=== PATIENT | female | born 1960 | race Caucasian/White ===

== ENCOUNTER 2017-11-17 18:41 | Emergency (ER) | payer OTHER ==
[~2017-11-17] VITALS: Ht 162.6 cm; Wt 78.2 kg
[~2017-11-17 18:41] MED LIST: ALPR0.5T99 PO; OMEP20TA PO; SERT100 PO; SYNT137T PO; TRAZ150T75 PO; TRAZ50TA78 PO
[2017-11-17 18:46] VITALS: BP 173/77; PULSE 97; RESP 16; TEMP 99.3; O2SAT 97
[2017-11-17] MEDS ORDERED: TRAZ1TAB14 PO (19:08)
[2017-11-17] MEDS ORDERED: BUPR150XL PO (19:08)
[2017-11-17] MEDS ORDERED: LEVO.125 PO (19:08)
[2017-11-17] MEDS ORDERED: CLON1 PO (19:09)
[2017-11-17] MEDS ORDERED: ALLE60TA PO (19:10)
[2017-11-17 19:39] VITALS: BP 146/66; PULSE 91; RESP 18; O2SAT 97
--- NOTE | 2017-11-17 19:39 | PD ---
HPI Chief Complaint: Anxiety Time Seen by Provider: 19:10 Travel History International Travel<30 days: No Contact w/Intl Traveler<30days: No Traveled to known affect area: No History of Present Illness HPI 57 year old female presents to the ER for evaluation of "anxiety". She states it started two days ago while gardening she noted dizziness. She also reports intermittent forgetfulness and forgetting intermittent tasks. No focalized weakness Endorses intermittent double vision. Increased nervousness. At that patient states she has noticed that she is having some trouble ambulating as well. Denies any chest pain shortness breath abdominal pain nausea vomiting diarrhea constipation. States is never happened to her before. She states symptoms are moderate, duration for the past 2 days, constant, associated signs and symptoms as above. PFSH Past Medical History Anemia: Yes Arthritis: Yes (LEFT HIP) Asthma: Yes Anxiety: Yes Depression: Yes Cancer: Yes (SKIN: BASAL CELL) Diminished Hearing: No Endocrine: Yes Gastrointestinal Disorders: Yes (GERD) Genitourinary: Yes (LITHOTRIPSY) Hepatitis: No Hiatal Hernia: Yes Immune Disorder: No Inguinal Hernia: Yes (LEFT SIDE NOT REPAIRED) Kidney Stones: Yes Musculoskeletal: Yes (ARTHRITIS) Neurologic: No Psychiatric: Yes (Hx of treatment for anxiety and depression) Reproductive: No Respiratory: Yes (ASTHMA) Migraines: Yes Thyroid Disease: Yes Tetanus Vaccination: < 5 Years Influenza Vaccination: Yes ?: Not Menopausal: Yes : 3 Para: 3 Ovarian Cysts: Yes (LEFT SIDE) Past Surgical History Abdominal Surgery: No AICD: No Cardiac Surgery: No Ear Surgery: No Endocrine Surgery: Yes (REPORTS GLAND REMOVED FROM NECK IN CHILDHOOD) Eye Surgery: Yes (RIGHT CATARACT SURGERY 2013, ) Genitourinary Surgery: Yes (CYSTOSCOPY, LEFT URETERAL STENT PLACEMENT/ REM'D, ESWL) Gynecologic Surgery: No Joint Replacement: No Oral Surgery: Yes (TONSILS) Pacemaker: No Thoracic Surgery: No Tonsillectomy: Yes Other Surgery: Yes (CYST REMOVED FROM LEFT LATERIAL NECK AREA) Social History Alcohol Use: Yes (WINE RARELY) Tobacco Use: No (QUIT 1983) Substance Use: No Allergies-Medications (Allergen,Severity, Reaction): Coded Allergies: tramadol (Unverified Allergy, Severe, MENTAL CHANGES, 11/17/17) hydromorphone (Unverified Adverse Reaction, Severe, MENTAL CHANGES, 11/17/17 ) ondansetron (Unverified Adverse Reaction, Severe, MIGRANE HEEADACHE, ) Reported Meds & Prescriptions Reported Meds & Active Scripts Active Reported Shila Allergy (Fexofenadine HCl) 60 Mg Tab 60 Mg PO DAILY Klonopin (Clonazepam) 1 Mg Tab 1 Mg PO HS Trazodone (Trazodone HCl) 150 Mg Tablet 150 Mg PO HS Synthroid (Levothyroxine Sodium) 125 Mcg Tab 125 Mcg PO DAILY Wellbutrin Xl 24 HR (Bupropion HCl) 150 Mg Tab 150 Mg PO DAILY Review of Systems Except as stated in HPI: all other systems reviewed are Neg Physical Exam Narrative GENERAL: Well-developed well-nourished no obvious distress. SKIN: Focused skin assessment warm/dry. HEAD: Atraumatic. Normocephalic. EYES: Pupils equal and round. No scleral icterus. No injection or drainage. ENT: No nasal bleeding or discharge. Mucous membranes pink and moist. NECK: Trachea midline. No JVD. CARDIOVASCULAR: Regular rate and rhythm. No murmur appreciated. RESPIRATORY: No accessory muscle use. Clear to auscultation. Breath sounds equal bilaterally. GASTROINTESTINAL: Abdomen soft, non-tender, nondistended. Hepatic and splenic margins not palpable. MUSCULOSKELETAL: No obvious deformities. No clubbing. No cyanosis. No edema. NEUROLOGICAL: Awake and alert. Patient cerebellar testing with finger-nose- finger and heel hilario testing is negative, the patient is able to get into Romberg position but loses her balance and stumbles backwards. She states closing her eyes made her feel very dizzy. She ambulates with an even narrow- base gait but is unable to perform heel to toe walking. Cranial nerves II through XII grossly intact, she has 5 out of 5 strength in all 4 extremities, no nystagmus. Able to maintain her posture in bed and her Romberg position while eyes open. Do not appreciate any truncal ataxia. No stairstepping gait. PSYCHIATRIC: Describes her mood is anxious, affect is mildly anxious. Insight and judgment normal. Data Data Last Documented VS Vital Signs Date Time Temp Pulse Resp B/P (MAP) Pulse Ox O2 Delivery O2 Flow Rate FiO2 11/17/17 22:34 11/17/17 21:57 82 16 Room Air 11/17/17 19:39 97 11/17/17 18:46 99.3 Orders Orders Complete Blood Count With Diff (11/17/17 19:49) Comprehensive Metabolic Panel (11/17/17 19:49) Prothrombin Time / Inr (Pt) (11/17/17 19:49) Act Partial Throm Time (Ptt) (11/17/17 19:49) Ct Brain W/O Iv Contrast(Rout) (11/17/17 19:49) Ecg Monitoring (11/17/17 19:49) Iv Access Insert/Monitor (11/17/17 19:49) Oximetry (11/17/17 19:49) Sodium Chloride 0.9% Flush (Ns Flush) (11/17/17 20:00) Mri Brain W&W/O Contrast (11/17/17 ) Electrocardiogram (11/17/17 ) Thyroid Stimulating Hormone (11/17/17 19:49) Lorazepam Inj (Ativan Inj) (11/17/17 21:00) Gadodiamide Pf Inj (Omniscan Pf Inj) (11/17/17 21:37) Ed Discharge Order (11/17/17 22:26) Labs Laboratory Tests Test 11/17/17 20:10 White Blood Count 6.0 TH/MM3 Red Blood Count 4.39 MIL/MM3 Hemoglobin 12.8 GM/DL Hematocrit 37.8 % Mean Corpuscular Volume 86.0 FL Mean Corpuscular Hemoglobin 29.1 PG Mean Corpuscular Hemoglobin Concent 33.8 % Red Cell Distribution Width 13.4 % Platelet Count 182 TH/MM3 Mean Platelet Volume 8.4 FL Neutrophils (%) (Auto) 67.5 % Lymphocytes (%) (Auto) 24.8 % Monocytes (%) (Auto) 6.1 % Eosinophils (%) (Auto) 1.2 % Basophils (%) (Auto) 0.4 % Neutrophils # (Auto) 4.0 TH/MM3 Lymphocytes # (Auto) 1.5 TH/MM3 Monocytes # (Auto) 0.4 TH/MM3 Eosinophils # (Auto) 0.1 TH/MM3 Basophils # (Auto) 0.0 TH/MM3 CBC Comment DIFF FINAL Differential Comment Prothrombin Time 9.8 SEC Prothromb Time International Ratio 1.0 RATIO Activated Partial Thromboplast Time 25.1 SEC Blood Urea Nitrogen 13 MG/DL Creatinine 0.87 MG/DL Random Glucose 92 MG/DL Total Protein 7.4 GM/DL Albumin 3.8 GM/DL Calcium Level 9.3 MG/DL Alkaline Phosphatase 118 U/L Aspartate Amino Transf (AST/SGOT) 9 U/L Alanine Aminotransferase (ALT/SGPT) 18 U/L Total Bilirubin 0.2 MG/DL Sodium Level 139 MEQ/L Potassium Level 4.0 MEQ/L Chloride Level 107 MEQ/L Carbon Dioxide Level 27.6 MEQ/L Anion Gap 4 MEQ/L Estimat Glomerular Filtration Rate 67 ML/MIN Thyroid Stimulating Hormone 3rd Gen 0.791 uIU/ML MDM Medical Decision Making Medical Screen Exam Complete: Yes Emergency Medical Condition: Yes Differential Diagnosis Cerebellar CVA, MS, electrolyte abnormality, anemia, anxiety, vertigo Narrative Course Patient has neurologic findings of loss of balance and coordination with some testing but not with all. This could represent a peripheral vertigo or could be a central vertigo. Do not appreciate any symptoms to suggest dorsal column problems. She is able to ambulate with an even narrow-base gait. I think the patient would be doing well to have an MRI of her brain tonight to exclude any central nervous system process. So performed and is negative: Last [address] 11/17/17 194 Signed Impressions: Service Date/Time: Friday, November 17, 2017 20:19 - CONCLUSION: 1. No acute intracranial abnormalities. Johnson Kirk MD Brain MRI 11/17/17 0000 Signed Impressions: Service Date/Time: Friday, November 17, 2017 21:25 - CONCLUSION: 1. No acute brain parenchymal abnormalities. No recent infarction. No abnormal enhancement post contrast. 2. Predominantly fluid-filled sella with pituitary gland flattened against the inferior sella. Johnson Kirk MD I discussed the incidental finding and the pituitary gland with her that the patient is still having normal cycles and does not appear to have any pituitary dysfunction other than her hypothyroidism which is adequately maintained given normal TSH today. Her basic labs are otherwise reassuring. Patient was given Ativan for MRI and is feeling better. This certainly is possible that all this is supratentorial from a anxiety component. At any rate the patient is stable for discharge at this time. Discussed follow-up with a neurologist or primary care physician and return to ED criteria. Discussed that she probably should have a repeat imaging of her brain to determine any change in size of the sellar components. Diagnosis Primary Impression: Dizziness and giddiness Referrals: Michael Tejeda MD PhD Disposition: 01 DISCHARGE HOME Condition: Stable Sammy Coronel MD Nov 17, 2017 19:39
[2017-11-17] MEDS ORDERED: SODIUM CHLORIDE 0.9% FLUSH 10 ML FLUSH IVF PRN (20:00)
[2017-11-17 20:32] LABS: BASOPHIL % 0.4 % (0.0-2.0); EOSINOPHIL # 0.1 TH/MM3 (0-0.4); EOSINOPHIL % 1.2 % (0.0-4.0); HEMATOCRIT 37.8 % (35.0-46.0); HEMOGLOBIN 12.8 GM/DL (11.6-15.3); LYMPH % 24.8 % (9.0-44.0); LYMPHOCYTE # 1.5 TH/MM3 (1.0-4.8); MEAN CORPUSCULAR HEMOGLOBIN 29.1 PG (27.0-34.0); MEAN CORPUSCULAR HGB CONC 33.8 % (32.0-36.0); MEAN PLATELET VOLUME 8.4 FL (7.0-11.0); MONO % 6.1 % (0.0-8.0); MONOCYTE # 0.4 TH/MM3 (0-0.9); NEUT % 67.5 % (16.0-70.0); PLATELET COUNT 182 TH/MM3 (150-450); RED BLOOD COUNT 4.39 MIL/MM3 (4.00-5.30); RED CELL DISTRIBUTION WIDTH 13.4 % (11.6-17.2)
[2017-11-17 20:44] LABS: CHLORIDE 107 MEQ/L (98-107); SODIUM (NA) 139 MEQ/L (136-145)
[2017-11-17 20:47] LABS: CALCIUM 9.3 MG/DL (8.5-10.1)
--- NOTE | 2017-11-17 20:47 | RADRPT ---
EXAM DATE/TIME: 11/17/2017 20:19 [facility] COMPARISON: No previous studies available for comparison. INDICATIONS : Dizziness. RADIATION DOSE: 50.14 CTDIvol (mGy) MEDICAL HISTORY : None SURGICAL HISTORY : None. ENCOUNTER: Initial ACUITY: 1 day PAIN SCALE: 0/10 LOCATION: cranial TECHNIQUE: Multiple contiguous axial images were obtained of the head. Using automated exposure control and adj ustment of the mA and/or kV according to patient size, radiation dose was kept as low as reasonably a chievable to obtain optimal diagnostic quality images. DICOM format image data is available electro nically for review and comparison. FINDINGS: CEREBRUM: The ventricles are normal for age. No evidence of midline shift, mass lesion, hemorrhage or acute in farction. No extra-axial fluid collections are seen. POSTERIOR FOSSA: The cerebellum and brainstem are intact. The 4th ventricle is midline. The cerebellopontine angle i s unremarkable. EXTRACRANIAL: The visualized portion of the orbits is intact. SKULL: The calvaria is intact. No evidence of skull fracture. CONCLUSION: 1. No acute intracranial abnormalities. Johnson Kirk MD on November 17, 2017 at 20:42 Board Certified Radiologist. This report was verified electronically.
[2017-11-17 20:48] LABS: ALBUMIN 3.8 GM/DL (3.4-5.0); BICARBONATE 27.6 MEQ/L (21.0-32.0); BLOOD UREA NITROGEN 13 MG/DL (7-18); GLUCOSE,RANDOM 92 MG/DL (74-106)
[2017-11-17 20:51] LABS: ALT (GPT) 18 U/L (10-53); AST (GOT) 9 U/L (15-37); CREATININE 0.87 MG/DL (0.50-1.00); GLOMERULAR FILTRATION RATE 67 ML/MIN (>89)
[2017-11-17 20:52] LABS: TOTAL BILIRUBIN ADULT 0.2 MG/DL (0.2-1.0); TOTAL PROTEIN 7.4 GM/DL (6.4-8.2)
[2017-11-17 20:54] LABS: ALKALINE PHOSPHATASE 118 U/L (45-117)
[2017-11-17 20:58] VITALS: BP 141/73
[2017-11-17 21:00] LABS: PROTHROMBIN TIME - PATIENT 9.8 SEC (9.8-11.6)
[2017-11-17] MEDS ORDERED: LORazepam 2 MG/ML VIAL IV PUSH ONE (21:00)
--- NOTE | 2017-11-17 21:33 | EKG ---
Date Performed: 11/17/2017 Time Performed: 20:04:32 PTAGE: 57 years EKG: Baseline artifact present Sinus rhythm NORMAL ECG Compared to prior electrocardiogram, rate has increased PREVIOUS TRACING : 02/20/2011 09.22 DOCTOR: Enzo Castro Interpretating Date/Time 11/17/2017 21:33:01
[2017-11-17] MEDS ORDERED: GADODIAMIDE PF 287 MG/ML 20 ML VIAL (for RAD MRI) IVCONTRAST ONE (21:37)
[2017-11-17 21:57] VITALS: BP 119/69; PULSE 82; RESP 16
--- NOTE | 2017-11-17 22:17 | RADRPT ---
EXAM DATE/TIME: 11/17/2017 21:25 [facility] COMPARISON: No previous studies available for comparison. INDICATIONS : Unsteady gait. CONTRAST: 15 cc Omniscan (gadodiamide) IV MEDICAL HISTORY : None. SURGICAL HISTORY : Tonsillectomy. Cataract. ENCOUNTER: Initial ACUITY: 1 day PAIN SCORE: 0/10 LOCATION: cranial TECHNIQUE: Multiplanar, multisequence MRI of the brain was performed both prior to and following the administrat ion of paramagnetic contrast. FINDINGS: CEREBRUM: The ventricles are normal for age. No evidence of midline shift, mass lesion, hemorrhage or acute in farction. No extraaxial fluid collections are seen. There is a 14 mm fluid collection or cyst above the pituitary with pituitary gland flattened against the inferior sella. WHITE MATTER: No significant signal abnormalities are seen in the white matter. POSTERIOR FOSSA: The cerebellum and brainstem are intact. The 4th ventricle is midline. The cerebellopontine angle is unremarkable. The cerebellar tonsils are normal in position. DIFFUSION IMAGING: No focal areas of restricted diffusion are seen. No evidence of acute infarction. EXTRACRANIAL: The visualized portions of the orbits and paranasal sinuses are unremarkable. POST-CONTRAST: No abnormal areas of parenchymal or dural enhancement. No evidence of blood-brain barrier breakdown. CONCLUSION: 1. No acute brain parenchymal abnormalities. No recent infarction. No abnormal enhancement post contr ast. 2. Predominantly fluid-filled sella with pituitary gland flattened against the inferior sella. Johnson Kirk MD on November 17, 2017 at 22:09 Board Certified Radiologist. This report was verified electronically.
== END 2017-11-17 22:35 | disposition home or self-care (01) ==
LOC: PHED 18:41
DX: R42 Dizziness and giddiness (principal); H53.2 Diplopia; F41.9 Anxiety disorder, unspecified; E03.9 Hypothyroidism, unspecified; F32.9 Major depressive disorder, single episode, unspecified; J45.909 Unspecified asthma, uncomplicated; K21.9 Gastro-esophageal reflux disease without esophagitis; Z87.891 Personal history of nicotine dependence; Z85.828 Personal history of other malignant neoplasm of skin
CPT/HCPCS: 70450; 70553; 80053; 84443; 85025; 85610; 85730; 93005; 96374; 99285; A9579; J2060